=== PATIENT | female | born 2000 | race African-American/Black ===

== ENCOUNTER 2022-07-03 18:14 | Emergency (ER) | payer OTHER ==
[2022-07-03 18:32] VITALS: BP 107/67; PULSE 103; RESP 18; TEMP 99.2; BMI 26.6
[2022-07-03] MEDS ORDERED: ACETAMINOPHEN 325 MG TABLET (FP) PO ONE (19:18)
[2022-07-03] MEDS ORDERED: ACETAMINOPHEN 325 MG TABLET (FP) ONE (19:49)
[2022-07-03 20:24] LABS: PH,URINE 5.5 (5.0-8.0); URINE APPEARANCE CLEAR; URINE BILIRUBIN NEGATIVE (NEGATIVE); URINE COLOR YELLOW; URINE GLUCOSE (UA) NEGATIVE (NEGATIVE); URINE KETONE 1+ (NEGATIVE); URINE LEUK ESTERASE NEGATIVE (NEGATIVE); URINE NITRITE NEGATIVE (NEGATIVE); URINE PROTEIN NEGATIVE (NEGATIVE); URINE UROBILINOGEN 0.2 mg/dL (0.2-1.0)
[2022-07-03 20:38] LABS: HCG,QUALITATIVE URINE Negative
[2022-07-03] MEDS ORDERED: IBUPROFEN 400 MG TABLET (FP) PO ONE (20:51)
[2022-07-03] MEDS ORDERED: IBUPROFEN 600 MG TABLET (FP) PO ONE (21:37)
== END 2022-07-03 21:57 | disposition home or self-care (01) ==
LOC: JERFT 18:14
DX: R42 Dizziness and giddiness (principal); R51.9 Headache, unspecified; R05.9 Cough, unspecified; Z20.822 Contact with and (suspected) exposure to COVID-19
CPT/HCPCS: 0241U-QW; 71046-TC-FY; 81003; 82962; 84703; 87086; 93005; 93010; 99285-25

== ENCOUNTER 2022-10-13 14:02 | Emergency (ER) | payer OTHER ==
[2022-10-13 14:14] VITALS: BP 110/63; PULSE 90; RESP 20; TEMP 99.2; BMI 27.1
[2022-10-13] MEDS ORDERED: FAMOTIDINE 10 MG TABLET PO ONE (16:31)
[2022-10-13] MEDS ORDERED: FAMOTIDINE 20 MG TABLET ONE ×2 (17:37→17:49)
[2022-10-13 18:05] LABS: BASO % 1.6 % (0-2.0); EOS % 0.5 % (0-4.5); HEMATOCRIT 39.4 % (32.4-45.2); HEMOGLOBIN 12.9 GM/dL (10.7-15.3); LYMPH % 32.7 % (8-40); MCH 29.3 pg (25.7-33.7); MCHC 32.7 g/dl (32.0-36.0); MEAN CELL VOLUME 89.5 fl (80-96); MEAN PLT VOLUME 7.9 fl (7.5-11.1); NEUT % 55.2 % (42.8-82.8); PLATELET COUNT 397 10^3/uL (134-434); RDW 12.6 % (11.6-15.6); WHITE BLOOD COUNT 5.5 K/mm3 (4.0-10.0)
[2022-10-13 18:08] LABS: POTASSIUM 4.1 mmol/L (3.5-5.1)
[2022-10-13 18:10] LABS: ALBUMIN 3.8 g/dl (3.4-5.0); BLOOD UREA NITROGEN 15.9 mg/dL (7-18); MAGNESIUM 2.5 mg/dL (1.8-2.4)
[2022-10-13 18:13] LABS: CREATININE 0.9 mg/dL (0.55-1.3)
[2022-10-13 18:15] LABS: BILIRUBIN,TOTAL 0.3 mg/dL (0.2-1); TOT PROT 7.7 g/dl (6.4-8.2)
== END 2022-10-13 18:58 | disposition home or self-care (01) ==
LOC: JER 14:02
DX: R06.02 Shortness of breath (principal); R07.9 Chest pain, unspecified; R11.0 Nausea; R14.2 Eructation; R00.2 Palpitations; F41.9 Anxiety disorder, unspecified
CPT/HCPCS: 36415; 80053; 83735; 84439; 84443; 84484; 84703; 85025; 93005; 93010; 99284-25